=== PATIENT | male | born 1980 | race Caucasian/White ===

== ENCOUNTER → 2017-12-18 14:43 | Outpatient (CLI) | payer BC, SELFPAY ==
--- NOTE | 2017-12-18 14:56 | US_ITS ---
US scrotum HISTORY: ITS.REASON: SWELLING RT TESTICAL ORDERING PHYSICIAN: Michelle Oliveiar PATIENT AGE: 37 years Comparison: None FINDINGS: RIGHT TESTICLE: The right testicle has an unremarkable appearance measuring 4.7 x 2.7 x 3.6 cm. No testicular mass is evident. There is a small amount fluid around the right testicle. Blood flow is present to the right testicle.. Blood flow is noted to the right testicle. There is mild prominence of the epididymal head with heterogeneous echogenicity and slight increase in blood flow suggesting epididymitis LEFT TESTICLE: Left testicle measures 4.3 x 2.8 x 3.4 cm and has an unremarkable appearance. Blood flow is present. No hydrocele spermatocele or varicocele evident. IMPRESSION: Suspect right-sided epididymitis with small hydrocele
== END ==
PROVIDERS: PCP Nurse Practitioner Family; Visit Provider Nurse Practitioner Family
DX: N50.811 Right testicular pain (principal)
CPT/HCPCS: 76870

== ENCOUNTER 2022-11-27 20:11 | Emergency (ER) | payer BC, SELFPAY ==
[2022-11-27 20:12] VITALS: BP 113/87; PULSE 78; RESP 18; TEMP 37.1; O2SAT 97; BMI 28.0
[2022-11-27 20:57] VITALS: BP 132/80; PULSE 79; RESP 19; TEMP 36.8; O2SAT 98
--- NOTE | 2022-11-27 21:00 | HMH.EDWNDL ---
Discharge Plan Disposition Chief Complaint: Wound/Laceration Referrals Follow up/Referrals: Michelle Oliveira APRN [Primary Care Provider] - See instructions Activity Restrictions/Add. Instructions Additional Instructions/Restrictions: sutures out 5-7 days Clinical Impressions Clinical Impression: Laceration of head Instructions Patient Instructions: DI for Laceration Repair Discharge ED Provider: Mart (ED),Mathew Lara Wound/Laceration HPI General Chief Complaint: Wound/Laceration Stated Complaint: AO 11/27, head lac Time Seen by Provider: 11/27/22 20:40 Mode of Arrival: Ambulatory Source of Information: Patient, Spouse and Medical Record Limitations: No Limitations Description of Symptoms (Recalled from ER Triage Doc. by RN): Pt present with a 1 head laceration to the top of his head from a metal body panel while working on a car. Denies any LOC, N/V or visual changes. States his last tet shot was less than 10 yrs ago. History of Present Illness HPI narrative: lac to scalp tonight - no loc or other sx Onset (ago): hour(s) Location: scalp Place: home Patient tetanus UTD: Yes Context: accidental Associated symptoms: none PFSH PFSH Disclaimer: The information contained in this section may have been updated after the patient was seen, as this information can be updated by other users. Social History Smoking Status: Current every day smoker alcohol intake: never current occupational status: employed Travel in the last 8 weeks: None ROS Obtained: Yes All systems reviewed & no additional complaints except as documented Physical Exam General General appearance: alert Head Head exam: normocephalic Eye Eye exam: Present PERRL and EOMI ENT ENT exam: Present mucous membranes moist Neck Neck exam: Present trachea midline Respiratory Respiratory exam: Absent respiratory distress Cardiovascular Cardiovascular exam: Present regular rate Extremities Exam Extremities exam: Present full ROM Neurological Exam Neurological exam: Present alert, oriented X3, CN II-XII intact and other (gcs=15); Absent motor sensory deficit Psychiatric Psychiatric exam: Present normal affect Skin Skin exam: Present other (1 cm scalp lac) Medical Decision Making Medical Records Medical records reviewed: Yes I reviewed the patient's medical records. Mati Inquiry Pt receiving controlled substance: No Vital Signs: 11/27/22 20:12 Temperature 98.7 F Temperature Source Oral Pulse Rate [Right] 78 Respiratory Rate 18 Blood Pressure [Right Arm] 113/87 Blood Pressure Mean [Right Arm] 95 Blood Pressure Source [Right Arm] Automatic Cuff Blood Pressure Position [Right Arm] Sitting 02 Sat by Pulse Oximetry 97 Oxygen Delivery Method Room Air Medical Decision Narrative: scalp lac and stable exam - no indications for xrays Procedures Laceration Laceration 1: Site: scalp Side (If applicable): left Size (cm): 2 Description: linear Depth: involves subcutaneous layer Local Anesthetic: lidocaine 1% Amount of anesthesia used (mL): 4 Pre-repair: deep structures intact Skin layer closed with: nylon Size (cm): 3-0 Number of sutures: 2 Technique: simple, interrupted Critical Care Time Critical Care Time Critical Care Time: No Attestation: On 11/27/22, the high probability of a clinically significant, sudden or life threatening deterioration of the following system(s) required my full and direct attention, intervention and personal management. The time I documented below is in addition to time spent performing reported procedures but includes the following listed in this critical care notation.
== END 2022-11-27 21:09 | disposition home or self-care (01) ==
PROVIDERS: Emergency Provider Emergency Medicine; PCP Nurse Practitioner Family
DX: S01.01XA Laceration without foreign body of scalp, initial encounter (principal); F17.200 Nicotine dependence, unspecified, uncomplicated; W26.8XXA Contact with other sharp object(s), not elsewhere classified, initial encounter
CPT/HCPCS: 12031; 99283; 99284

== ENCOUNTER → 2023-05-04 07:21 | Outpatient (CLI) | payer BC, SELFPAY ==
[2023-05-04 07:58] LABS: Basophils # 0.1 K/mm3 (0-0.2); Basophils % 1.3 % (0.1-2.0); Eosinophils # 0.5 K/mm3 (0.0-0.4); Eosinophils % 8.6 % (0.1-12.0); Hematocrit 49.6 % (42.0-52.0); Hemoglobin 16.8 g/dL (14.1-18.0); Lymphocytes % 34.8 % (10-50); Mean Corpuscular HGB Conc 33.8 g/dL (31.8-35.4); Mean Corpuscular Hemoglobin 30.1 pg (27.0-31.2); Mean Platelet Volume 8.1 fl (7.4-10.4); Monocytes # 0.6 K/mm3 (0.1-1.0); Monocytes % 10.3 % (1.7-9.3); Neutrophils # 2.6 K/mm3 (1.8-7.8); Platelet Count 157 K/mm3 (142-424); Red Blood Count 5.57 M/mm3 (4.60-6.20); Red Cell Distribution Width 13.2 % (11.5-17.5); White Blood Count 5.8 K/mm3 (4.8-10.8)
[2023-05-04 08:59] LABS: Anion Gap 10.6 mEq/L (5-15); Blood Urea Nitrogen 16 mg/dl (9-20); Calcium 9.3 mg/dl (8.4-10.2); Carbon Dioxide 31 mmol/L (22.0-30.0); Chloride 102 mmol/L (98-107); Estimated Glomerular Filt Rate 82 ml/min (>60); GFR (African American) 99 ML/MIN (>60); Glucose 99 mg/dl (74-100); Potassium 4.6 mmoL/L (3.5-5.1); Sodium 139 mmol/L (136-145)
== END ==
PROVIDERS: PCP Nurse Practitioner Family; Visit Provider Surgery
DX: D17.9 Benign lipomatous neoplasm, unspecified (principal)
CPT/HCPCS: 36415; 80048; 85025

== ENCOUNTER 2023-05-18 05:57 | Day surgery (SDC) | payer BC, SELFPAY ==
[2023-05-15 13:42] VITALS: BMI 27.0
[2023-05-18] VITALS (9 sets, daily range): BP systolic 97–153; BP diastolic 61–96; PULSE 63–79; RESP 16–25; TEMP 36.3–36.7; O2SAT 92–97
--- NOTE | 2023-05-18 07:10 | P.PNANES_ITS ---
[facility] Disclaimer: The information contained in this section may have been updated after the patient was seen, as this information can be updated by other users. Surgical History History of dermoid cyst excision Family History Other No significant family history Social History Smoking Status: Current every day smoker alcohol intake: current substance use type: denies use current occupational status: employed Travel in the last 8 weeks: None [facility] Anesthesia Checklist Patient Identification Patient Identification: Arm Band and Verbal (Name & ) Structural Data Admitted From: Home Planned Operative Procedure/s: Mass on back removed Consent for Planned Operative Procedure(s) Verified: Yes NPO Status Verified Time NPO: 00:00 Additional verifications Anesthesia Reactions: No Hx Blood Transfusions: No Blood Transfusion Reaction: No Airway Assessment Mallampati Score:: Class III C-Spine Mobility Assessed: Yes TMJ Mobility Assessed: Yes Dentition: Poor Dentition Neurological Assessment Level of Consciousness: Awake Hx Seizures: No Numbness or tingling in extremities: No Anesthesia Plan Anesthesia Risk discussed: Yes Anesthesia Plan: Verified ASA Class: II Anesthesia Type: General
--- NOTE | 2023-05-18 08:11 | EXP.OP.NOTE ---
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 General anesthesia was induced and he was then transferred to a prone position. His posterior neck and right mid/upper back were prepped and draped in a sterile fashion. After infiltration local anesthetic an incision was made overlying the palpable posterior neck lesion. The deep subcutaneous tissue was dissected with electrocautery. A complex lobulated lipomatous lesion was excised with a combination of sharp dissection, blunt dissection, and electrocautery. The lipoma encroached to the fascial margin but did not appear to be intramuscular. Once the lipoma was excised in toto it was passed off for pathologic evaluation. Electrocautery was utilized to achieve hemostasis and skin was then reapproximated with interrupted 4-0 nylon in a mattress fashion to facilitate hemostasis. The right mid/upper back lipomatous lesion was excised in the same manner. Dressings were applied at both sites and the patient was transferred to recovery in stable condition. Condition: stable Disposition: PACU Specimens:: 5 cm recurrent left posterior neck lipoma 2.5 cm right mid/upper back lipoma Complications:: No immediate
--- NOTE | 2023-05-18 08:25 | P.PNANES_ITS ---
[facility] Anesthesia Record Part I Anesthesia Record I Intake, IV Amount: 600 Hydration: Adequate Estimated blood loss (mL): 10 Urine output (mL): 0 Blood Pressure: 110/61 SaO2: 92 Pulse Rate: 74 Airway Patency: Patent Respiratory Rate: 25 Temperature: 97.6 F Patient is:: Drowsy and Oral/Nasal airway Stable to PACU at:: 08:20
--- NOTE | 2023-05-19 08:10 | P.PNANES_ITS ---
[facility] Anesthesia Record Part II Anesthesia Record Part II Discharge Time: 08:50 Destination: Surgical Day Care (OP Surgery) PACU nurse assessment reviewed?: Yes Patient Condition:: Good Anesthesia Complications:: None Swallowing reflex intact?: Yes Airway Patency: Patent Cyanosis?: No Blood Pressure: 147/79 SaO2: 96 Respiratory Rate: 16 Pulse Rate: 73 Temperature: 98.1 F Mental Status: Alert & Oriented Pain level:: 0 Nausea and/or vomitting:: None Intake, IV Amount: 0 Hydration: Adequate
[2023-05-19 08:11] VITALS: BP 147/79; PULSE 73; RESP 16; TEMP 36.7; O2SAT 96
== END 2023-05-18 09:15 | disposition home or self-care (01) ==
PROVIDERS: PCP Nurse Practitioner Family; Visit Provider Surgery
PROC: (CPT 11426; principal; 2023-05-18 07:30)
DX: D17.0 Benign lipomatous neoplasm of skin and subcutaneous tissue of head, face and neck (principal); D17.1 Benign lipomatous neoplasm of skin and subcutaneous tissue of trunk
CPT/HCPCS: 11426; 11403; 96374; J2405